=== PATIENT | female | born 1955 | race Caucasian/White ===

== ENCOUNTER 2025-03-25 10:00 | Emergency (ER) | payer MEDICARE, OTHER, SELFPAY ==
[2025-03-25 10:03] VITALS: BP 154/98
--- NOTE | 2025-03-25 10:10 | EDRN ---
At triage, pt is concerned that she is erroneously listed as a DNR. Attempted to re-assure her that it does not say she is a DNR. She said her brother who is a doctor told her her 'MYchart' was hacked and lists her as a DNR.
--- NOTE | 2025-03-25 10:15 | ED.GENMED ---
History of Present Illness
General
Chief Complaint: Cardiac Symptoms
Source: patient
Exam Limitations: none
Time Seen by Provider: 03/25/25 10:14
Nursing documentation reviewed up to this point in time: agreed with
History of Present Illness
History of Present Illness:
69-year-old female presents emergency room due to shortness of breath and chest discomfort. She awoke at 730 to the chirping of her smoke detector. She then went into the bathroom and opened a window in the fresh air and made her feel better. She
then went outside in the fresh air continue to make her feel better. She denies any dyspnea with exertion. She feels some pain at this time still.
Past History
Past History
ED Past Medical History: Asthma, Cancer (Basal cell skin), Hypercholesterolemia and Other (Osteoarthritis); Negative HTN, IDDM or NIDDM
ED Past Surgical History: Orthopedic (Left total hip replacement) and Other (Basal cell carcinoma excision forehead and back, wisdom teeth extraction)
Social History
Tobacco: Non-smoker
Review of Systems
Review of Systems
Allergies reviewed?: Yes
All Other Systems: Not applicable
Constitutional: Reports no symptoms
EENT: Reports no symptoms
Respiratory: Reports trouble breathing
Cardiac: Reports chest pain
ABD/GI: Reports no symptoms
: Reports no symptoms
Musculoskeletal: Reports no symptoms
Skin: Reports no symptoms
Neurological: Reports no symptoms
Endocrine: Reports no symptoms
Hematologic/Lymphatic: Reports no symptoms
Psychiatric: Reports no symptoms
Phy Exam
Physical Exam
Physical Exam:
Physical Exam
General: no apparent distress, not acutely ill
Neck: supple. no meningeal signs. normal posterior pharynx
Heart: s1/s2 regular rate and rhythm, no murmur. equal radial
pulses.
HEENT: Pupils equal round reactive to light, EOMI
Lungs: no acute respiratory distress. clear bilaterally
Abdomen: normal bowel sounds. not tender. no CVAT
Neuro: alert and oriented. no focal neurological deficits cranial nerves II through XII intact
Skin: no rash
Psychiatric: well kept. interactive and cooperative
Extremities: no edema. no calf tenderness. negative homans. good distal pulses
She is no
Scores
Heart Score for Chest Pain Patients
STEMI patient?: No
History: Slightly or Non-Suspicious
ECG: Normal
Age: >/= 65 years
Risk Factors: No Risk Factors
Troponin: </= Normal Limit
Heart Score for Chest Pain Patients: 2
Heart Score Risk: 2.5% MACE over next 6 weeks
Course
Orders/Labs/Results
Orders:
Orders
03/25/25 10:03
ECG [Electrocardiogram (*1)] Urgent
Reason for Study: Chest Pain
EKG- Treatment ONCE
03/25/25 10:27
IV Insert/Care/Rem.- Treatment PRN
Pulse Ox/cont/shift [RESP] Stat
Quantity: 1
03/25/25 10:28
Cardiac Monitoring- Treatment ONCE
CR Chest - 2 Views Urgent
Comment:
Reason For Exam: chest pain, short of breath
03/25/25 10:37
Complete Blood Count/With Diff Urgent
Comprehensive Metabolic Panel Urgent
D-Dimer Urgent
Lipase Urgent
Troponin I Urgent
03/25/25 13:27
Troponin I Urgent
Abnormal Lab Results
03/25/25
10:37
RBC 4.16 L 10^6/uL
(4.20-5.40)
MCHC 32.4 L g/dL
(33.0-37.0)
MPV 10.8 H fL
(7.4-10.4)
Glucose 110 H mg/dl
(70-99)
03/25/25 10:37
03/25/25 10:37
Vital Signs
Initial and Last Documented VS:
Initial Vital Signs
Temp Pulse Resp BP Pulse Ox
98.4 F 97 16 154/98 98
03/25/25 10:03 03/25/25 10:03 03/25/25 10:03 03/25/25 10:03 03/25/25 10:03
Last Documented Vital Signs
Temp Pulse Resp BP Pulse Ox
98.4 F 88 19 136/71 99
03/25/25 10:03 03/25/25 13:30 03/25/25 13:30 03/25/25 12:00 03/25/25 13:30
MDM/Problems Addressed
Differential Diagnosis Includes:
Pulmonary embolism, ACS
MDM/Problems Addressed:
69-year-old female with episodic chest pain, unclear etiology. Doubt ACS or PE. Patient stable for discharge, follow-up primary care. Return precautions given.
*Radiology
Radiology exam reviewed: radiology read reviewed (Chest x-ray no acute findings)
*Pulse Oximetry
Patient hypoxic: no
*EKG
Interpreted by ED Provider?: Yes
EKG Intrepretation Date: 03/25/25
EKG Intrepretation Time: 10:09
Interpretation: normal
Comparison EKG: no changes
Heart Rate: 90
Rate: normal
Rhythm: sinus
[place]: normal axis
Interval: normal interval
QRS Pattern: normal QRS
Ischemia: no ischemia
*Enthone Solder Stripper Interpretation
Rate: normal
Interpretation: normal
Heart Rate: 88
Rhythm: sinus
*Critical Care Note
Total Time (30-74mins, 75-104mins- exclusive of procedures): Not Applicable
Data Reviewed
Further Testing Considered But Not Given:
CT chest not indicated
Patient Management
Social determinants of health affecting care: Living situation and Strong social support
Escalation/DeEscalation of care consider admission/obs:
admit not indicated
ED Attending Note
-
Portions of this chart may have been created with voice recognition software.� Occasional wrong word or��sound alike� substitutions may have occurred due to the inherent limitations of voice recognition software.
Discharge Plan
Departure
Patient Disposition: Home (Routine Discharge)
Date of Disposition: 03/25/25
Time of Disposition: 14:10
Patient with high blood pressure during this ER visit?: Yes
Condition: Good
Discharge Problem:
Chest pain
Instructions: Chest Pain (DC), BLOOD PRESSURE
Prescriptions:
No Action
atorvastatin 40 MG tablet
20 mg PO QPM
albuterol sulfate 1 PUFF HFA aerosol inhaler
1 puff inhalation PRN PRN (Reason: shortness of breath (cold))
Ca carb-D3-mag [id number] [Caltrate-D3 Plus Minerals] 1 EACH tablet
1 ea PO QPM
mometasone [Asmanex Twisthaler] 220 MCG aerosol powdr breath activated
1 puff inhalation DAILY
nitrofurantoin monohyd/m-cryst 100 MG capsule
100 mg PO BID Qty: 10 0RF
pantoprazole 40 MG tablet,delayed release (DR/EC)
40 mg PO BID Qty: 20 0RF
Referrals:
Huan Branham MD [Family Provider] - Call in 1-3 days for appt
Interventions
Interventions:
*Risk Screen - Suicide Last Done: 03/25/25 10:26
*General Assessment Last Done: 03/25/25 10:26
*Neglect/Abuse Screening Last Done: 03/25/25 10:26
*ED COVID-19 Vaccine History Last Done: 03/25/25 10:26
ED- Cardiac Assessment Last Done: 03/25/25 10:26
ED- Pulmonary Assessment Last Done: 03/25/25 10:26
Discharge Date and Time
Print Language: PUERTO RICAN
[2025-03-25 10:26] VITALS: BMI 21.0
[2025-03-25 11:02] LABS: ALT (SGPT) 25 U/L (0-35); AST (SGOT) 27 U/L (14-36); Albumin 4.6 g/dl (3.5-5.0); Alkaline Phosphatase 45 U/L (38-126); Blood Urea Nitrogen 11 mg/dl (7-17); Calcium 9.5 mg/dl (8.4-10.2); Carbon Dioxide 29 mmol/L (22-30); Chloride 105 mmol/L (98-107); Estimated Creatinine Clearance 68 ml/min; Glucose 110 mg/dl (70-99); Lipase 141 U/L (23-300); Potassium 3.8 mmol/L (3.5-5.1); Sodium 140 mmol/L (135-145); Total Protein 7.5 g/dl (6.3-8.2); eGFR > 60.00
[2025-03-25 11:03] LABS: % Basophils 0.9 % (0-2); % Eosinophils 5.7 % (0-6); % Immature Granulocytes 0.3 % (0-0.5); % Lymphocytes 26.3 % (20.5-51.1); % Monocytes 7.9 % (1.7-9.3); % Neutrophils 58.9 % (42.2-75.2); Absolute Basophils 0.1 10^3/uL (0-0.2); Absolute Eosinophils 0.4 10^3/uL (0-0.7); Absolute Lymphocytes 1.7 10^3/uL (1.2-3.4); Absolute Monocytes 0.5 10^3/uL (0.1-0.6); Absolute Neutrophils 3.7 10^3/uL (1.4-6.5); Hematocrit 39.2 % (37.0-47.0); Hemoglobin 12.7 g/dL (12.0-16.0); Mean Corp Hgb Conc. 32.4 g/dL (33.0-37.0); Mean Corpuscular Hgb 30.5 pg (27.0-31.0); Mean Corpuscular Volume 94.2 fL (81.0-99.0); Mean Platelet Volume 10.8 fL (7.4-10.4); Nucleated Red Blood Cells % 0 %; Platelet Count 225 10^3/uL (130-400); Red Blood Cell Count 4.16 10^6/uL (4.20-5.40); Red Cell Dist. Width 12.7 % (11.5-14.5); White Blood Cell Count 6.3 10^3/uL (4.8-10.8)
[2025-03-25 11:14] LABS: Troponin I 0.015 ng/ml
[2025-03-25 11:57] VITALS: BP 143/75
[2025-03-25 12:00] VITALS: BP 136/71
[2025-03-25 14:00] VITALS: BP 123/63
[2025-03-25 14:02] LABS: Troponin I 0.013 ng/ml
== END 2025-03-25 14:50 | disposition home or self-care (01) ==
LOC: EMR 10:00
PROVIDERS: EMERGENCY PHYSICIAN Emergency Medicine; FAMILY PHYSICIAN Internal Medicine
DX: J45.909 Unspecified asthma, uncomplicated (principal); E78.00 Pure hypercholesterolemia, unspecified; M19.90 Unspecified osteoarthritis, unspecified site; Z85.828 Personal history of other malignant neoplasm of skin
CPT/HCPCS: 99283; 71046; 80053; 83690; 84484; 85025; 85379; 93005